=== PATIENT | male | born 2000 | race Caucasian/White ===

== ENCOUNTER 2023-01-20 18:20 | Emergency (ER) | payer MEDICAID, OTHER ==
[~2023-01-20] VITALS: Ht 182.9 cm; Wt 115.8 kg
[2023-01-20 18:55] VITALS: BP 135/97; PULSE 94; RESP 18; TEMP 98.4; O2SAT 98
[2023-01-20] MEDS ORDERED: IBUP1TAB5 PO (21:22)
[2023-01-20] MEDS ORDERED: CEPH500C PO (21:22)
[2023-01-20] MEDS ORDERED: MUPI2OIN2 EX (21:22)
[2023-01-20] MEDS ORDERED: NEOMYCIN-BACITRACIN-POLYM UNITDOSE PKG TOP OINT TOP ONE (21:30)
[2023-01-20] MEDS ORDERED: HYDROcodone-ACET 5/325MG TAB PO ONE (21:30)
[2023-01-20] MEDS ORDERED: CEPHALEXIN 250 MG CAP PO ONE (21:30)
== END 2023-01-20 21:27 | disposition home or self-care (01) ==
LOC: ER 18:20
DX: S60.454A Superficial foreign body of right ring finger, initial encounter (principal); Z79.1 Long term (current) use of non-steroidal anti-inflammatories (NSAID); Z79.899 Other long term (current) drug therapy; W45.8XXA Other foreign body or object entering through skin, initial encounter; Y93.89 Activity, other specified; Y92.89 Other specified places as the place of occurrence of the external cause; Y99.8 Other external cause status